=== PATIENT | male | born 1980 | race Caucasian/White ===

== ENCOUNTER 2019-12-03 15:32 | Emergency (ER) | payer OTHER ==
[~2019-12-03] VITALS: Ht 175.3 cm; Wt 95.7 kg
[2019-12-03 15:41] VITALS: Ht 175.3 cm; Wt 95.7 kg
[2019-12-03 17:33] VITALS: BP 137/94
== END 2019-12-03 17:00 | disposition home or self-care (01) ==
LOC: ED 15:32
DX: H00.015 Hordeolum externum left lower eyelid (principal)